=== PATIENT | female | born 1985 | race Caucasian/White ===

== ENCOUNTER → 2023-10-01 | Outpatient (CLI) | payer OTHER ==
[2005-04-06 09:08] VITALS: BP 115/71; PULSE 84; TEMP 97.9
[~2023-10-01] MED LIST: PRENATAL1 TA1 PO; SLOW FE45 MG PO
== END ==
LOC: MC.RAD 08:03
DX: Z12.31 Encounter for screening mammogram for malignant neoplasm of breast (principal)